=== PATIENT | female | born 1965 | race Caucasian/White ===

== ENCOUNTER 2016-12-18 06:48 | Emergency (ER) | payer OTHER ==
[~2016-12-18] VITALS: Ht 162.6 cm; Wt 49.9 kg
[2016-12-18 06:49] VITALS: BP 141/103
== END 2016-12-18 07:55 | disposition home or self-care (01) ==
LOC: ER 06:52
DX: J45.909 Unspecified asthma, uncomplicated (principal); J20.9 Acute bronchitis, unspecified; F17.200 Nicotine dependence, unspecified, uncomplicated

== ENCOUNTER 2016-12-24 13:16 | Emergency (ER) | payer OTHER ==
[~2016-12-24] VITALS: Ht 160 cm; Wt 49.9 kg
[2016-12-24 13:16] VITALS: BP 110/72
[2016-12-24] MEDS ORDERED: ALBUTEROL SULF 2.5 MG/0.5ML(0.5%) NEB SOLN NEB STA (15:38)
[2016-12-24] MEDS ORDERED: IPRATROPIUM BROM 0.5 MG/2.5ML INH SOL NEB PRN (15:45)
== END 2016-12-24 16:38 | disposition home or self-care (01) ==
LOC: ER 13:16
DX: J41.0 Simple chronic bronchitis (principal); Z87.891 Personal history of nicotine dependence; J45.909 Unspecified asthma, uncomplicated
CPT/HCPCS: 71020; 94640